=== PATIENT | female | born 1965 | race Two or more races ===

== ENCOUNTER 2020-08-22 15:10 | Emergency (ER) | payer BC ==
[~2020-08-22] VITALS: Ht 165.1 cm; Wt 138.8 kg
[2020-08-22 15:16] VITALS: BP 99/65
--- NOTE | 2020-08-22 15:26 | NUR ---
DR LE AT BEDSIDE FOR EVAL.
[2020-08-22] MEDS ORDERED: SULF1TAB48 PO (15:36)
--- NOTE | 2020-08-22 16:04 | NUR ---
WOUND CARE PROVIDED. PT DISCHARGE HOME IN STABLE CONDITION.
== END 2020-08-22 16:06 | disposition home or self-care (01) ==
LOC: ER 15:10
DX: A46 Erysipelas (principal); I10 Essential (primary) hypertension; E11.9 Type 2 diabetes mellitus without complications; I48.91 Unspecified atrial fibrillation; Z79.899 Other long term (current) drug therapy